=== PATIENT | male | born 1965 | race Caucasian/White ===

== ENCOUNTER 2016-07-19 17:04 | Inpatient (IN) ==
--- NOTE | 2016-07-19 18:50 | Emergency Department Note ---
START Narrative - START START: Start note: Otherwise healthy 50-year-old male presents with a swollen red and painful right leg for about 5 days getting worse. He claims he was bitten by something 5 days ago but does not know what it is. The patient at the evening croup Dr. Blandon will be arriving about 15 minutes. Ordering some screening labs IV pain medications IV antibiotics and ordering a CT scan of the right lower extremity with IV contrast to rule out deep tissue space infection or osteomyelitis. Patient will be given a tetanus booster. Patient to be seen by the evening CREW
[2016-07-19] MEDS ORDERED: Ondansetron 4 MG/2 ML VIAL IVP ONE (18:51)
[2016-07-19] MEDS ORDERED: *HR* HYDROmorphone (PF) 1 MG/ML SYRINGE IVP ONE ×2 (18:51→20:10)
[2016-07-19 18:57] LABS: Basophils % 0.3 %; Eosinophils # 0.1 K/mcL (0.0-0.6); Eosinophils % 0.5 %; Hematocrit 41.3 % (37.5-50.1); Hemoglobin 14.2 g/dL (12.9-16.9); Immature Granulocytes % 0.4 % (0-4); Immature Platelets 2.3 % (1.1-6.1); Lymphocytes # 1.3 K/mcL (0.6-4.6); Lymphocytes % 10.1 %; Mean Corpuscular HGB Conc 34.4 g/dL (31.6-35.5); Mean Corpuscular Volume 87.1 fL (83.0-100.0); Mean Platelet Volume 8.8 fL (9.4-12.4); Monocytes # 1.7 K/mcL (0.0-1.3); Monocytes % 12.8 %; Neutrophils # 9.9 K/mcL (1.6-8.9); Platelet Count 291 K/mcL (140-400); Red Blood Count 4.74 M/mcL (4.19-5.50); Red Cell Distribution Width 11.9 % (11.5-14.5); Segmented Neutrophils % 75.9 %
[2016-07-19] MEDS ORDERED: Tdap (Boostrix) Vaccine 0.5 ML SYRINGE IM ONE (19:05)
[2016-07-19 19:14] LABS: Alanine Aminotransferase 62 Units/L (0-55); Albumin 3.1 g/dL (3.5-5.0); Albumin/Globulin Ratio 0.7 (1.1-2.2); Alkaline Phosphatase 88 Units/L (38-126); Aspartate Amino Transferase 39 Units/L (5-34); BUN/Creatinine Ratio 10 (6-26); Bilirubin,Total 0.5 mg/dL (0.2-1.2); Blood Urea Nitrogen 9 mg/dL (8-26); Carbon Dioxide 25 mEq/L (19-29); Chloride 99 mEq/L (98-109); Globulin 4.6 g/dL (2.4-3.5); Glucose 126 mg/dL (70-99); Osmolality,Calculated 278 (280-300); Potassium 3.6 mEq/L (3.5-4.5); Sodium 134 mEq/L (136-145); Total Protein 7.7 g/dL (6.0-8.3); eGFR For African Americans > 60 (> 60); eGFR For Non-African Americans > 60 (> 60)
--- NOTE | 2016-07-19 19:17 | Emergency Department Note ---
Disposition Clinical Impression: Abscess Cellulitis Qualifiers: Site of cellulitis: extremity Site of cellulitis of extremity: lower extremity Laterality: right Qualified Code(s): L03.115 - Cellulitis of right lower limb Disposition: Admitted As Inpatient Condition: Good Lower Extremity Injury HPI - General Chief Complaint: ED Extremity Injury, Lower Stated Complaint: R leg infection Time Seen by Provider: 07/19/16 18:29 Source: patient Mode of arrival: ambulatory Limitations: no limitations Nursing Notes Reviewed: Yes Vital Signs Reviewed: Yes - History of Present Illness HPI Narrative: 50-year-old male history of seizure disorder presents for evaluation of right lower leg swelling and redness. Patient states that he possibly bitten by a spider 5 days ago. Otherwise atraumatic. Patient did not witness a spider or feel a spider bite. States that he noticed small skin lesion that was suspected to be a spider bite on the lateral lower leg just distal to the knee. Since that time the patient's redness and swelling has significantly worsened. Pain is worse with movement and is constant. Patient denies any chills but does note possible subjective fevers. No nausea or vomiting. No chest pain or short of breath. No other systemic signs or symptoms. Reports he can move his toes distally. Does have sensation distally as well. Patient is a nondiabetic with no significant history of cellulitis or skin or soft tissue infections. Reports that he has not had a tetanus update in the past 5 years - Related Data Home Medications Medication Instructions Recorded Confirmed CarBAMazepine [Tegretol] 400 mg PO BID 07/19/16 07/19/16 Allergies Allergy/AdvReac Type Severity Reaction Status Date / Time phenytoin [From Dilantin] Allergy Rash Verified 07/19/16 17:34 All systems ED: reviewed and negative except as stated. Constitutional: Reports: as per HPI, fever. Denies: chills Eyes: Reports: as per HPI ENT ED: Reports: as per HPI Cardiovascular: Reports: as per HPI. Denies: chest pain, palpitations Respiratory: Reports: as per HPI. Denies: cough, dyspnea Gastrointestinal: Reports: as per HPI. Denies: abdominal pain, nausea, vomiting Genitourinary: Reports: as per HPI Musculoskeletal: Reports: as per HPI Integumentary: Reports: as per HPI Neurological: Reports: as per HPI Psychiatric: Reports: as per HPI Endocrine: Reports: as per HPI Hematological/Lymphatic: Reports: as per HPI Allergic/Immunologic: Reports: as per HPI Past Medical History - Past Medical History Medical history: Reports: no medical history Psychiatric history: Reports: no psych history - Social History Smoking Status: Never smoker Smokeless Tobacco Status: No Alcohol use: Reports: none Drug use: Reports: none Physical Exam - General Limitations: no limitations General appearance: alert, other (Appears uncomfortable) - Head Head exam: atraumatic, normocephalic, normal inspection - Eye Eye exam: Present: normal appearance, EOMI. Absent: scleral icterus - ENT ENT exam: normal exam, mucous membranes moist - Neck Neck exam: Present: normal inspection, trachea midline - Chest Chest inspection: Present: normal inspection, symmetric chest wall rise - Respiratory Respiratory exam: Present: normal lung sounds bilaterally. Absent: respiratory distress - Cardiovascular Cardiovascular exam: Present: regular rate, normal rhythm - Abdominal Exam Abdominal exam: Present: soft, Non-Tender - Expanded Lower Extremity Exam Hip/Pelvis exam: Present: normal inspection Upper leg exam: Present: normal inspection Knee exam: Present: swelling, erythema, other (Redness and erythema on the distal lateral aspect of the right knee) Lower leg exam: Present: swelling, erythema, other (Lateral erythema outlined with a skin marker on the right lower leg with active purulent drainage, warm to the touch no underlying crepitus) Ankle exam: Present: normal inspection Foot/toe exam: Present: normal inspection Neurovascular/Tendon exam: Present: pallor (Over the dorsum of the feet bilaterally with 4 second cap refill). Absent: pulse deficit, motor deficit, sensory deficit - Back Exam Back exam: Present: normal inspection - Neurological Exam Neurological exam: Present: alert - Skin Skin exam: Present: other (As described above) Course Course Narrative: Patient seen and examined. Patient was seen prior to our arrival. Patient had lab work obtained concerns for soft tissue cellulitis infection. Patient received Rocephin, pain control patients also awaiting a CT of the right lower leg for concerns of soft tissue cellulitic infection. Patient's tetanus was also updated. Vital Signs Temperature 98.9 F 07/19/16 17:34 Pulse Rate 87 07/19/16 17:34 Respiratory Rate 22 07/19/16 17:34 Blood Pressure 143/72 07/19/16 17:34 O2 Sat by Pulse Oximetry 98 07/19/16 17:34 Temperature 99.7 F H 07/20/16 00:48 Pulse Rate 92 07/20/16 00:48 Respiratory Rate 15 07/20/16 00:48 Blood Pressure 136/78 07/20/16 00:48 O2 Sat by Pulse Oximetry 95 07/20/16 00:48 Oxygen Delivery Oxygen Delivery Room Air Procedures - Abscess I/D Consent obtained: written consent Site: lower extremity Side (if applicable): right Local Anesthetic: lidocaine 1%, with epi Amount of Anesthesia Used (mL): 5 Technique: incised with #11 blade Irrigation: Yes Packing used?: plain Extremity Injury, Lower - MDM Narrative Medical decision making narrative: 50-year-old male PRESENTS for evaluation of right lower leg pain. Patient's physical exam is consistent with cellulitis with developing abscess in his right lower leg. Patient had a CT of the lower [place] performed that did not reveal any osseous changes. Showed a developing abscess. Patient's was initially started on Rocephin prior to my arrival and added vancomycin to his anabiotic regimen. Patient also received pain control. Incision and drainage of the pelvic abscess was performed with cultures and expressed purulent discharge. Due to the extent of the patient's cellulitis patient is recommended to have IV antibiotics. Patient be admitted the [facility] for further therapy. - Lab Data Lab results reviewed: Yes I reviewed the patient's lab results. Result diagrams: 07/19/16 18:43 07/19/16 18:43 Lab Results 07/19/16 07/19/16 07/19/16 Range/Units 18:43 18:43 18:43 WBC 13.0 H (4.3-11.1) K/mcL RBC 4.74 (4.19-5.50) M/mcL Hgb 14.2 (12.9-16.9) g/dL Hct 41.3 (37.5-50.1) % MCV 87.1 (83.0-100.0) fL MCH 30.0 (28.0-33.3) pg MCHC 34.4 (31.6-35.5) g/dL RDW 11.9 (11.5-14.5) % Plt Count 291 (140-400) K/mcL MPV 8.8 L (9.4-12.4) fL Immature Gran % 0.4 (0-4) % Seg Neutrophils % 75.9 % Lymphocytes % 10.1 % Monocytes % 12.8 % Eosinophils % 0.5 % Basophils % 0.3 % Neutrophils # 9.9 H (1.6-8.9) K/mcL Lymphocytes # 1.3 (0.6-4.6) K/mcL Monocytes # 1.7 H (0.0-1.3) K/mcL Eosinophils # 0.1 (0.0-0.6) K/mcL Basophils # 0.0 (0.0-0.2) K/mcL Immature Plt Fraction 2.3 (1.1-6.1) % Sodium 134 L (136-145) mEq/L Potassium 3.6 (3.5-4.5) mEq/L Chloride 99 (98-109) mEq/L Carbon Dioxide 25 (19-29) mEq/L BUN 9 (8-26) mg/dL Creatinine 0.92 (0.72-1.25) mg/dL Est GFR ( Amer) > 60 (> 60) Est GFR (Non-Af Amer) > 60 (> 60) BUN/Creatinine Ratio 10 (6-26) Glucose 126 H (70-99) mg/dL Calculated Osmolality 278 L (280-300) Calcium 9.0 (8.6-10.8) mg/dL Total Bilirubin 0.5 (0.2-1.2) mg/dL AST 39 H (5-34) Units/L ALT 62 H (0-55) Units/L Alkaline Phosphatase 88 (38-126) Units/L C-Reactive Protein 147 H (Less than 5) mg/L Serum Total Protein 7.7 (6.0-8.3) g/dL Albumin 3.1 L (3.5-5.0) g/dL Globulin 4.6 H (2.4-3.5) g/dL Albumin/Globulin Ratio 0.7 L (1.1-2.2) - Radiology Data Radiology results reviewed: Yes I reviewed the patient's radiology results. Lower Extremity CT 07/19/16 18:51 IMPRESSION: 1. Diffuse subcutaneous fat stranding with anterolateral skin thickening compatible with cellulitis. 5.3 x 4.6 x 1.3 cm area of in the anterolateral aspect of the proximal lower leg compatible with early phlegmon versus developing abscess. 2. No acute osseous abnormality. D/ / Adriel Remy MD / Adriel Remy MD Interpreting Provider: Adriel Remy MD Attestation Statement - Attestation Attestation: I, Joe Mckeon, examined this patient and my medical decision-making was reviewed with the DIRECTOR BUILDING/PA/Advanced Practice Nurse/Resident Physician. I agree with the documented findings, disposition and treatment plan as described except to the extent set forth below. 10-year-old male presents with significant redness and swelling and pain to the right lower lateral extremity. Patient states the area started off as a small pimple and developed into a large area of swelling and erythema. Denies fever, chills, nausea, vomiting. Denies near syncopal symptoms chest pain or shortness of breath. CT of the right lower extremity reveals developing abscess present does not show evidence of necrotizing fasciitis. Incision and drainage of the abscess in the emergency department produced a large amount of purulent material. Patient will be admitted to the hospital for further IV antibiotics and evaluation in the hospital.
[2016-07-19] MEDS ORDERED: Vancomycin 1,000 MG in D5% in Water 250 ML IVPB ONE (20:26)
[2016-07-19] MEDS ORDERED: Lidocaine/EPI 1:100k 1% 20 ML VIAL INFILT ONE (20:35)
[2016-07-19] MEDS ORDERED: Vancomycin 1,000 MG in D5% in Water 250 ML IVPB SCH (21:30)
[2016-07-20] MEDS: carBAMazepine 200 MG TABLET PO SCH ×3 (00:40→22:36)
[2016-07-20] MEDS ORDERED: Naloxone 0.4 MG/ML INJ IVP PRN (01:46)
[2016-07-20] MEDS ORDERED: *HR* OxyCODONE Immed Rel 5 MG TABLET PO PRN (01:46)
[2016-07-20] MEDS ORDERED: Acetaminophen 325 MG TABLET PO PRN (01:46)
[2016-07-20] MEDS ORDERED: Ketorolac 30 MG/ML VIAL IVP ONE (01:49)
--- NOTE | 2016-07-20 01:52 | Internal Med History&Physical ---
Date of Encounter: 07/20/16 Time of Encounter: 01:51 Assessment and Plan (1) Cellulitis Current visit: Yes Status: Acute Platelet ceftriaxone and vancomycin Qualifiers: Site of cellulitis: extremity Site of cellulitis of extremity: lower extremity Laterality: right Qualified Code(s): L03.115 - Cellulitis of right lower limb (2) Abscess Current visit: Yes Status: Acute S/P I&D. cultures pending. Titrate antibiotics based on sensitivities (3) Seizure disorder Current visit: Yes Status: Chronic Seizure precautions. Continue home medications (4) DVT prophylaxis Current visit: Yes [facility]: [facility] - H&P: HPI Chief complaint: Pain and swelling of the right leg Admitted From: Emergency Dept Plans for Post Hospital Care: Home History of present illness: Mr. Montes is a 50 year old male With history of seizure disorder presents for evaluation of right lower leg swelling and redness. Patient states that he possibly bitten by a spider 5 days ago. Patient did not witness a spider or feel a spider bite, but noticed small skin lesion that was suspected to be a spider bite on the lateral aspect of lower leg just distal to the knee. Since that time the patient's redness and swelling has significantly worsened. Pain is severe, constant, non radiating and throbbing and is worse on weightbearing. Patient denies fever chills. Denies nausea or vomiting, chest pain or short of breath. He was evaluated in emergency department and was noted to have an abscess which was drained and packed. This was sent for culture. He was started on ceftriaxone and vancomycin. He is admitted to the hospitalist service for further workup and management. Past Med Surg Social Fam HX - Past Medical History Medical history: seizures Psychiatric history: no psych history - Past Surgical History Surgical History: other - Social History Smoking Status: Never smoker Smokeless Tobacco Status: No Alcohol use: none Drug use: none - Family History Mother History Unknown: Yes Internal Medicine - H&P: Meds CarBAMazepine [Tegretol] 400 mg PO BID 07/19/16 [History] Allergies phenytoin [From Dilantin] Allergy (Verified 07/19/16 17:34) Rash All Systems PM: A 10-system review of systems was performed and is negative for pertinent findings except as documented above in the HPI. - Constitutional Vitals: Temp Pulse Resp BP Pulse Ox 99.7 F H 92 15 136/78 95 07/20/16 00:48 07/20/16 00:48 07/20/16 00:48 07/20/16 00:48 07/20/16 00:48 Exam: General: In mild distress at the time of my evaluation HEENT: Oral mucosa is moist. No conjunctival palor or scleral icterus Neck: No obvious neck swellings Lungs: Clear to auscultation Cardiac: Regular rate and rhythm. No significant murmurs Abdomen: Soft, non tender. Bowel sounds present Genitourinary: No kwok catheter Neurological: Alert and oriented. No gross localizing deficits Psych: Not aggressive or agitated Extremities: There is redness, warmth and tenderness of the lateral right leg, with edema of the leg Skin: No generalized rash Internal Med - H&P Results - Labs CBC & Chem 7: 07/20/16 04:28 07/20/16 04:28 - Impressions ITS Impressions Lower Extremity CT 07/19/16 18:51 IMPRESSION: 1. Diffuse subcutaneous fat stranding with anterolateral skin thickening compatible with cellulitis. 5.3 x 4.6 x 1.3 cm area of in the anterolateral aspect of the proximal lower leg compatible with early phlegmon versus developing abscess. 2. No acute osseous abnormality. D/ / Adriel Remy MD / Adriel Remy MD Interpreting Provider: Adriel Remy MD
[2016-07-20] MEDS: 0.9 % Sodium Chloride 1,000 ML IVC SCH ×2 (02:31→13:38)
[2016-07-20] MEDS: *HR* Morphine 2 MG/ML SYRINGE IVP PRN ×4 (04:00→22:36)
[2016-07-20 05:01] LABS: Basophils % 0.2 %; Eosinophils # 0.1 K/mcL (0.0-0.6); Eosinophils % 0.7 %; Hematocrit 36.1 % (37.5-50.1); Immature Granulocytes % 0.5 % (0-4); Lymphocytes # 1.3 K/mcL (0.6-4.6); Lymphocytes % 10.4 %; Mean Corpuscular HGB Conc 33.8 g/dL (31.6-35.5); Mean Corpuscular Hemoglobin 29.9 pg (28.0-33.3); Mean Corpuscular Volume 88.5 fL (83.0-100.0); Mean Platelet Volume 8.9 fL (9.4-12.4); Monocytes # 1.8 K/mcL (0.0-1.3); Neutrophils # 8.8 K/mcL (1.6-8.9); Platelet Count 250 K/mcL (140-400); Red Blood Count 4.08 M/mcL (4.19-5.50); Segmented Neutrophils % 73.2 %
[2016-07-20 05:03] LABS: Hemoglobin 12.2 g/dL (12.9-16.9)
[2016-07-20 05:15] LABS: BUN/Creatinine Ratio 12 (6-26); Blood Urea Nitrogen 11 mg/dL (8-26); Calcium 8.2 mg/dL (8.6-10.8); Carbon Dioxide 26 mEq/L (19-29); Chloride 101 mEq/L (98-109); Glucose 110 mg/dL (70-99); Osmolality,Calculated 278 (280-300); Potassium 3.6 mEq/L (3.5-4.5); Sodium 134 mEq/L (136-145); eGFR For African Americans > 60 (> 60); eGFR For Non-African Americans > 60 (> 60)
[2016-07-20] MEDS: *HR* Enoxaparin 40 MG/0.4 ML SYRINGE SQ SCH (06:01)
[2016-07-20] MEDS: Famotidine 20 MG TABLET PO SCH (08:34)
--- NOTE | 2016-07-20 11:55 | Internal Med Progress Note ---
Date of Encounter: 07/20/16 Time of Encounter: 11:52 - Assessment and plan (1) Cellulitis Current Visit: Yes Status: Acute Assessment and plan: s/p I/D Leukocytosis slightly improved Patient is on Vancomycin and Unasyn, pharmacy to dose Monitor trough Monitor renal function Continue current antibiotcs, follow culture Lower Extremity CT 07/19/16 18:51 IMPRESSION: 1. Diffuse subcutaneous fat stranding with anterolateral skin thickening compatible with cellulitis. 5.3 x 4.6 x 1.3 cm area of in the anterolateral aspect of the proximal lower leg compatible with early phlegmon versus developing abscess. 2. No acute osseous abnormality. Qualifiers: Site of cellulitis: extremity Site of cellulitis of extremity: lower extremity Laterality: right Qualified Code(s): L03.115 - Cellulitis of right lower limb (2) Seizure disorder Current Visit: Yes Status: Chronic Assessment and plan: Seizure precautions. Continue home medications (3) DVT prophylaxis Current Visit: Yes Status: Acute Assessment and plan: Lovenox SQ - Subjective Interval history: 50 M being managed for cellulitis of RLE with abscess he has a PMH of seizure disorders s/p I and D of the Right leg abscess in ER Awaiting cultures Still complaining of pain High risk due to Vanco - Constitutional Vitals: Temp Pulse Resp BP Pulse Ox 98.1 F 73 16 106/61 99 07/20/16 10:44 07/20/16 10:44 07/20/16 10:44 07/20/16 10:44 07/20/16 10:44 Exam: Gen: Not in distress HEENT: Oral mucosa is moist. No conjunctival palor or scleral icterus Neck: No obvious neck swellings Lungs: Clear to auscultation Cardiac: Regular rate and rhythm. No significant murmurs Abdomen: Soft, non tender. Bowel sounds present Genitourinary: No kwok catheter Neurological: Alert and oriented. No gross localizing deficits Psych: Not aggressive or agitated Extremities: There is redness, warmth and tenderness of the lateral right leg, with edema of the leg, multiple foci of entry, multiple insect bites Internal Medicine: Result - Labs CBC & Chem 7: 07/20/16 04:28 07/20/16 04:28 Labs: Short CBC 07/20/16 Range/Units 04:28 WBC 12.1 H (4.3-11.1) K/mcL Hgb 12.2 L D (12.9-16.9) g/dL Hct 36.1 L (37.5-50.1) % Plt Count 250 (140-400) K/mcL Neutrophils # 8.8 (1.6-8.9) K/mcL BMP 07/20/16 04:28 Sodium 134 L Potassium 3.6 Chloride 101 Carbon Dioxide 26 BUN 11 Creatinine 0.89 Glucose 110 H Calcium 8.2 L Consult Discharge Plan - Plan Referrals: NO,PCP [Primary Care Provider] -
[2016-07-20] MEDS ORDERED: Vancomycin 1,250 MG in D5% in Water 250 ML IVPB SCH (23:00)
[2016-07-20] MEDS: Vancomycin 1,250 MG in D5% in Water 250 ML IVPB SCH (23:26)
[2016-07-21] MEDS: *HR* Morphine 2 MG/ML SYRINGE IVP PRN ×5 (02:00→22:14)
[2016-07-21 05:40] LABS: Basophils % 0.5 %; Eosinophils # 0.2 K/mcL (0.0-0.6); Hematocrit 37.6 % (37.5-50.1); Hemoglobin 12.9 g/dL (12.9-16.9); Immature Granulocytes % 0.8 % (0-4); Lymphocytes # 1.5 K/mcL (0.6-4.6); Lymphocytes % 20.7 %; Mean Corpuscular HGB Conc 34.3 g/dL (31.6-35.5); Mean Corpuscular Hemoglobin 30.6 pg (28.0-33.3); Mean Corpuscular Volume 89.1 fL (83.0-100.0); Monocytes # 1.1 K/mcL (0.0-1.3); Monocytes % 14.3 %; Neutrophils # 4.5 K/mcL (1.6-8.9); Platelet Count 269 K/mcL (140-400); Red Blood Count 4.22 M/mcL (4.19-5.50); Red Cell Distribution Width 12.1 % (11.5-14.5); Segmented Neutrophils % 60.7 %
[2016-07-21 05:52] LABS: BUN/Creatinine Ratio 11 (6-26); Blood Urea Nitrogen 10 mg/dL (8-26); Calcium 8.3 mg/dL (8.6-10.8); Carbon Dioxide 29 mEq/L (19-29); Chloride 106 mEq/L (98-109); Glucose 91 mg/dL (70-99); Osmolality,Calculated 287 (280-300); Potassium 4.1 mEq/L (3.5-4.5); Sodium 139 mEq/L (136-145); eGFR For African Americans > 60 (> 60); eGFR For Non-African Americans > 60 (> 60)
[2016-07-21] MEDS: *HR* Enoxaparin 40 MG/0.4 ML SYRINGE SQ SCH (05:53)
[2016-07-21 06:15] LABS: Platelet Estimate Normal (Normal)
[2016-07-21] MEDS ORDERED: Aminoglycoside Consult 1 EACH MC ONE (07:35)
[2016-07-21] MEDS: Vancomycin 1,250 MG in D5% in Water 250 ML IVPB SCH ×2 (10:06→22:14)
[2016-07-21] MEDS: carBAMazepine 200 MG TABLET PO SCH ×2 (10:06→22:14)
[2016-07-21] MEDS: Famotidine 20 MG TABLET PO SCH (10:07)
--- NOTE | 2016-07-21 10:17 | Internal Med Progress Note ---
Date of Encounter: 07/21/16 Time of Encounter: 10:15 - Assessment and plan (1) Cellulitis Current Visit: Yes Status: Acute Assessment and plan: s/p I/D Leukocytosis slightly improved Patient is on Vancomycin and Ceftriaxone Wound culture with MRSA Continue Vanco and Monitor trough Monitor renal function Follow final culture reports Lower Extremity CT 07/19/16 18:51 IMPRESSION: 1. Diffuse subcutaneous fat stranding with anterolateral skin thickening compatible with cellulitis. 5.3 x 4.6 x 1.3 cm area of in the anterolateral aspect of the proximal lower leg compatible with early phlegmon versus developing abscess. 2. No acute osseous abnormality. Qualifiers: Site of cellulitis: extremity Site of cellulitis of extremity: lower extremity Laterality: right Qualified Code(s): L03.115 - Cellulitis of right lower limb (2) Seizure disorder Current Visit: Yes Status: Chronic Assessment and plan: Seizure precautions. Continue home medications (3) DVT prophylaxis Current Visit: Yes Status: Acute Assessment and plan: Lovenox SQ - Subjective Interval history: 50 M being managed for cellulitis of RLE with abscess he has a PMH of seizure disorders s/p I and D of the Right leg abscess in ER Denies new complains High risk due to Vanco Wound cultures resulted partially today, GPC, MRSA Wound care nurse has been consulted for wound dressing recommendatons - Constitutional Vitals: Temp Pulse Resp BP Pulse Ox 98.5 F 80 16 123/80 96 07/21/16 07:19 07/21/16 07:19 07/21/16 07:19 07/21/16 07:19 07/21/16 07:19 Exam: Gen: Not in distress HEENT: Oral mucosa is moist. No conjunctival palor or scleral icterus Neck: No obvious neck swellings Lungs: Clear to auscultation Cardiac: Regular rate and rhythm. No significant murmurs Abdomen: Soft, non tender. Bowel sounds present Genitourinary: No kwok catheter Neurological: Alert and oriented. No gross localizing deficits Psych: Not aggressive or agitated Extremities: redness has improved, warmth and tenderness of the lateral right leg, with edema of the leg, multiple foci of entry, multiple insect bites Internal Medicine: Result - Labs CBC & Chem 7: 07/21/16 05:04 07/21/16 05:04 Labs: Short CBC 07/21/16 Range/Units 05:04 WBC 7.4 (4.3-11.1) K/mcL Hgb 12.9 (12.9-16.9) g/dL Hct 37.6 (37.5-50.1) % Plt Count 269 (140-400) K/mcL Neutrophils # 4.5 (1.6-8.9) K/mcL BMP 07/21/16 05:04 Sodium 139 Potassium 4.1 Chloride 106 Carbon Dioxide 29 BUN 10 Creatinine 0.87 Glucose 91 Calcium 8.3 L Consult Discharge Plan - Plan Referrals: NO,PCP [Primary Care Provider] -
[2016-07-22] MEDS: *HR* Enoxaparin 40 MG/0.4 ML SYRINGE SQ SCH (05:08)
[2016-07-22] MEDS: *HR* Morphine 2 MG/ML SYRINGE IVP PRN ×3 (05:09→16:33)
[2016-07-22 05:17] LABS: Hematocrit 38.5 % (37.5-50.1); Hemoglobin 13.2 g/dL (12.9-16.9); Mean Corpuscular HGB Conc 34.3 g/dL (31.6-35.5); Mean Corpuscular Hemoglobin 30.4 pg (28.0-33.3); Mean Corpuscular Volume 88.7 fL (83.0-100.0); Platelet Count 284 K/mcL (140-400); Red Blood Count 4.34 M/mcL (4.19-5.50)
[2016-07-22 05:31] LABS: BUN/Creatinine Ratio 10 (6-26); Blood Urea Nitrogen 9 mg/dL (8-26); Calcium 8.5 mg/dL (8.6-10.8); Carbon Dioxide 25 mEq/L (19-29); Chloride 105 mEq/L (98-109); Glucose 100 mg/dL (70-99); Osmolality,Calculated 285 (280-300); Potassium 4.2 mEq/L (3.5-4.5); Sodium 138 mEq/L (136-145); eGFR For African Americans > 60 (> 60); eGFR For Non-African Americans > 60 (> 60)
[2016-07-22 06:16] LABS: Eosinophils # 0.1 K/mcL (0.0-0.6); Lymphocytes # 1.8 K/mcL (0.6-4.6); Monocytes # 0.8 K/mcL (0.0-1.3); Neutrophils # 3.8 K/mcL (1.6-8.9); Platelet Estimate Normal (Normal); Reactive Lymphocytes Present (Not Present)
[2016-07-22] MEDS: Famotidine 20 MG TABLET PO SCH (09:58)
[2016-07-22] MEDS: carBAMazepine 200 MG TABLET PO SCH (09:58)
--- NOTE | 2016-07-22 11:30 | Discharge Summary ---
Date of Encounter: 07/22/16 Time of Encounter: 11:30 - Discharge Diagnosis (1) Cellulitis Priority: Primary Status: Acute Qualifiers: Site of cellulitis: extremity Site of cellulitis of extremity: lower extremity Laterality: right Qualified Code(s): L03.115 - Cellulitis of right lower limb (2) Seizure disorder Priority: Secondary Status: Chronic (3) DVT prophylaxis Priority: Primary Status: Acute - Discharge Medications Prescriptions: Clindamycin [Cleocin] 300 mg PO Q6HR #28 capsule CarBAMazepine [Tegretol] 400 mg PO BID #60 tablet Ibuprofen 400 mg PO BID PRN #12 tablet PRN Reason: Pain Home Medications: CarBAMazepine [Tegretol] 400 mg PO BID #60 tablet 07/22/16 [Rx] Clindamycin [Cleocin] 300 mg PO Q6HR #28 capsule 07/22/16 [Rx] Ibuprofen 400 mg PO BID PRN #12 tablet 07/22/16 [Rx] Allergies/Adverse Reactions: Allergies phenytoin [From Dilantin] Allergy (Verified 07/19/16 17:34) Rash Date of admission: 07/20/16 01:46 Primary care physician: PCP NO Consults: 07/20/16 16:26 Consult to Wound Care [CONS] Routine Reason for Consult: s/p I and D Call Completed: Ellen 07/22/16 08:08 Consult to Envelope Sealer [CONS] Routine Reason for SW Consult: Wound care at home, home health Discharging clinician: Denilson Mead Anticipated date of discharge: 07/22/16 - Patient Status Disposition: Home, Self-Care Condition: Good Functional capacity at discharge: independent ambulation Overall status at discharge: patient is back to baseline - Discharge Instructions Follow Up With: NO,PCP [Primary Care Provider] - - Diet and Activity Activity: resume usual activities as tolerated Diet: regular diet Interval History: See below Hospital course: Mr. Montes is a 50 year old male with a past medical history of seizure disorder. He was admitted for right lower extremity cellulitis with abscess. Work up on admission revealed leukocytosis with left shift, RLE CT scan ruled out osteomyelitis but showed right lower extremity cellulitis with abscess formation. His abscess was drained in the ER and cultures grew MRSA. HE had multiple insect bites and LW wounds attributed by the patient to wood/yard works , these were the entry foci of infection He was started on ceftriaxone and vancomycin empirically. Wound cultures Tuesday reveals MRSA sensitive to vancomycin, rifampin, bactrim, and clindamycin, and Zyvox. Patient is on Carbamazepine at home with questionable compliance. However, due to his seizure medication, the most appropriate oral antibiotic with least drug interaction at this time will be clindamycin He will be discharged home on clindamycin by mouth for 7 more days. Patient has opted to do his wound care at home by himself RN has educated patient on wound care Follow up in wound care clinic Patient with no PCP, encouraged to set up appointment with resident's clinic here at [facility] Plan of care discussed, verbalized understanding - Time Spent with Patient Total time spent providing and/or coordinating discharge services: Less than 30 minutes - Constitutional Vitals: Temp Pulse Resp BP Pulse Ox 98.6 F 80 18 126/77 95 07/22/16 06:57 07/22/16 06:57 07/22/16 06:57 07/22/16 06:57 07/22/16 06:57 Exam: Gen: Not in distress HEENT: Oral mucosa is moist. No conjunctival palor or scleral icterus Neck: No obvious neck swellings Lungs: Clear to auscultation Cardiac: Regular rate and rhythm. No significant murmurs Abdomen: Soft, non tender. Bowel sounds present Genitourinary: No kwok catheter Neurological: Alert and oriented. No gross localizing deficits Psych: Not aggressive or agitated Extremities: redness has improved, warmth and tenderness of the lateral right leg, with edema of the leg, multiple foci of entry, multiple insect bites
--- NOTE | 2016-07-22 11:31 | Physician Discharge Referral ---
Home Health/Hosp Referral Info Transfer to: Home Health Attending Provider: Dr. Mead Provider in Charge Post Discharge: PCP - Diagnosis (1) Cellulitis Priority: Primary Status: Acute (2) Seizure disorder Priority: Secondary Status: Chronic (3) DVT prophylaxis Priority: Secondary Status: Acute - Respiratory Orders Smoking Cessation: Smoking cessation has been advised. For more information, call the [employer] Tobacco Quit Line at 2-073-QJUM-NOW. - Dressing/Wound Care Site: Right lateral leg - Services Needed Following services are medically necessary services: Nursing - Transfer Medications Home Medications: CarBAMazepine [Tegretol] 400 mg PO BID 07/19/16 [History] Allergies/Adverse Reactions: Allergies phenytoin [From Dilantin] Allergy (Verified 07/19/16 17:34) Rash Certification: Further, I certify that my clinical findings support that this patient is homebound (i.e. absences from home require considerable and taxing effort and are for medical reasons or taoism services or infrequently or short duration when for other reasons) because: Attestation: My signature below is to certify that this patient is under my care and that I, or nurse practitioner, or a physician's environmental services assistant working with me, has a face-to -face encounter with this patient.
[2016-07-22 15:31] VITALS: BP 120/74
== END 2016-07-22 17:14 | disposition home or self-care (01) | DRG 603 ==
LOC: EMEROO 17:04 → 3ANU 17:04 → SUATTDRO 07-20 01:46
PROVIDERS: ADMIT Internal Medicine; ATTEND Internal Medicine